=== PATIENT | male | born 1950 | race Caucasian/White ===

== ENCOUNTER 2021-09-27 18:03 | Inpatient (IN) | payer MEDICARE, OTHER ==
[~2021-09-27] VITALS: Ht 177.8 cm; Wt 74.1 kg
[~2021-09-27 18:03] MED LIST: LISINOPRIL10 MG PO; SINGULAIR PO
[2021-09-27 19:18] LABS: MEAN CELL VOLUME 90 fl (80.0-100.0); MEAN CORPUSCULAR HEMOGLOBIN 31 pg (27-31); MEAN CORPUSCULAR HGB CONC 34 g/dl (33.0-37.0); PLATELET COUNT 237 K/mm3 (130-400); RED BLOOD COUNT 4.55 M/mm3 (4.20-5.60); REDCELL DISTRIBUTION WIDTH-CV 12.3 % (11.5-14.5)
[2021-09-27 19:30] LABS: COLLECTION METHOD CLEAN CATCH
[2021-09-27 19:35] LABS: MUCOUS Present (NOT PRESENT); PH 7 (5-8); SQUAMOUS EPITHELIAL None Seen /hpf (0-10); URINE APPEARANCE Clear (CLEAR/HAZY); URINE BACTERIA None Seen /hpf (NONE SEEN); URINE BILIRUBIN Negative (NEGATIVE); URINE BLOOD Negative (NEGATIVE); URINE COLOR Yellow (YELLOW); URINE GLUCOSE Negative (NEGATIVE); URINE KETONE Negative (NEGATIVE); URINE LEUKOCYTE ESTERASE Negative (NEGATIVE); URINE NITRATE Negative (NEGATIVE); URINE PROTEIN(semi-quant) 1+ (NEGATIVE); URINE RBC None Seen /hpf (0-2); URINE UROBILINOGEN Negative (NEGATIVE)
[2021-09-27 19:39] LABS: ALBUMIN 3.9 gm/dL (3.4-4.8); BILIRUBIN,TOTAL 0.6 mg/dL (0.2-1.2); C-REACTIVE PROTEIN 0.69 mg/dL (0.00-0.50); CALCIUM 9.2 mg/dL (8.4-10.2); CREATININE, serum 0.89 mg/dL (0.72-1.25); POTASSIUM 3.9 mmol/L (3.5-4.5); TOTAL PROTEIN 6.8 gm/dL (6.2-8.1)
[2021-09-27 19:57] LABS: BAND 7 % (0-10); LYMPHOCYTE 2 % (20.0-51.0); NEUTROPHILS 90 % (42.0-75.2); PLATELET ESTIMATE NORMAL (NORMAL)
[2021-09-27 23:15] VITALS: BP 111/69; PULSE 83; TEMP 97.6
[2021-09-27] MEDS ORDERED: ZETIA 10MG TAB10 MG PO (23:53)
[2021-09-27] MEDS ORDERED: MICARDIS20 MG PO (23:55)
[2021-09-27] MEDS ORDERED: SYNTHROID0.088 MG/T PO (23:57)
[2021-09-28] MEDS ORDERED: MICARDIS40 MG PO (02:06)
[2021-09-28 03:11] VITALS: BP 108/84; PULSE 80; TEMP 98.3
[2021-09-28 03:36] LABS: TROPONIN-I 0.013 ng/mL (0.00-0.033); TSH w REFLEX 0.356 uIU/mL (0.350-4.940)
--- NOTE | 2021-09-28 06:11 | NUR ---
PT ARRIVED TO THE MEDICAL FLOOR AROUND [id number] TO [id number]. PT A&O X4; VSS; O2 RA; PT DENIES CHEST PAIN, SOB, N,V,D, GENERALIZED PAIN, OR DIZZINESS. ADMISSION ASSESSMENT AND MED REC COMPLETE. PT ORIENTED TO ROOM AND HOSPITAL POLICY. POC DISCUSSED WITH PT. PT VERBALIZED UNDERSTANDING. ALL QUESTIONS AND CONCERNS ADDRESSED. PT EXPRESSED NO ADDITIONAL NEEDS AT THIS TIME. CALL LIGHT WITHIN REACH.
[2021-09-28 06:24] LABS: BASO # 0.1 K/mm3 (0.0-0.2); BASO % 0.4 % (0.0-2.0); EOS # 0.1 K/mm3 (0.0-0.7); EOS % 0.6 % (0.0-4.0); GRAN # 14.4 K/mm3 (1.4-6.5); HEMOGLOBIN 12.1 g/dl (13.5-18.0); LYMPH # 1.1 K/mm3 (1.2-3.4); LYMPH % 6.5 % (20.0-51.0); MEAN CELL VOLUME 91 fl (80.0-100.0); MEAN CORPUSCULAR HEMOGLOBIN 31 pg (27-31); MEAN CORPUSCULAR HGB CONC 34 g/dl (33.0-37.0); MEAN PLATELET VOLUME 9.1 fl (7.4-10.4); MONO % 6.1 % (1.7-9.3); PLATELET COUNT 218 K/mm3 (130-400); RED BLOOD COUNT 3.94 M/mm3 (4.20-5.60); REDCELL DISTRIBUTION WIDTH-CV 12.4 % (11.5-14.5)
[2021-09-28 06:26] LABS: HEMATOCRIT 35.8 % (42.0-52.0)
[2021-09-28 06:47] LABS: BILIRUBIN,TOTAL 0.7 mg/dL (0.2-1.2); CALCIUM 8.5 mg/dL (8.4-10.2); CREATININE, serum 0.81 mg/dL (0.72-1.25); POTASSIUM 3.8 mmol/L (3.5-4.5); TOTAL PROTEIN 5.3 gm/dL (6.2-8.1)
[2021-09-28 06:57] LABS: INR 1.3 (0.8-3.0); PROTHROMBIN TIME 13.9 SECONDS (9.7-12.8)
[2021-09-28 07:41] VITALS: BP 106/60; PULSE 87; TEMP 97.4
--- NOTE | 2021-09-28 09:16 | NUR ---
Pt assessment complete. Pt is sitting up in the recliner upon entry, he is A/O x4. His breathing is even and unlabored on RA. Pt denies SOB. No pain at this time. Denies N/V. Hopeful to discharge home today. No needs at this time. Call light within reach.
--- NOTE | 2021-09-28 09:28 | NUR ---
Manager Skilled and SW student attended clinical rounds with the team then met with patient to discuss discharge planning. Patient lives in [place] with his , Lorena (ph#[phone]) and sees Dr. Guevara for primary care. Patient obtains medications from [facility] and does not use any DME. Patient is independent with ADLS and plans to return home upon discharge. Patient advised he has DPOA-HC that designates his , Lorena. Discharge plan: Home
[2021-09-28 11:17] VITALS: BP 126/64; PULSE 82; TEMP 97.8
--- NOTE | 2021-09-28 13:39 | NUR ---
Initial visit; Patient thanked Computer Assistant for looking in on him and offering to pray and/or keep him in her prayers. Flavio asked Computer Assistant to keep him in her prayers.
[2021-09-28 16:44] VITALS: BP 150/80; PULSE 100; TEMP 98.6
[2021-09-28 20:07] VITALS: BP 135/80; PULSE 79; TEMP 97.7
[2021-09-28 23:49] VITALS: BP 132/79; PULSE 81; TEMP 97.5
--- NOTE | 2021-09-29 01:55 | NUR ---
PATIENT DOING WELL TONIGHT. ALERT AND ORIENTED. DENIES PAIN OR PAIN CONTROL NEEDS. IV ZOSYN INFUSING INTERMITTENTLY THROUGH 20 G R AC IV. VSS. CURRENTLY ON ROOM AIR. ASSESSMENT COMPLETE. PATIENT RESTING COMFORTABLY IN BED.
[2021-09-29 03:46] VITALS: BP 147/84; PULSE 82; TEMP 98.1
[2021-09-29 07:01] LABS: BASO % 0.5 % (0.0-2.0); EOS # 0.3 K/mm3 (0.0-0.7); GRAN # 6.2 K/mm3 (1.4-6.5); GRAN % 77.5 % (42.2-75.2); HEMOGLOBIN 12.1 g/dl (13.5-18.0); LYMPH # 0.8 K/mm3 (1.2-3.4); LYMPH % 9.8 % (20.0-51.0); MEAN CELL VOLUME 92 fl (80.0-100.0); MEAN CORPUSCULAR HEMOGLOBIN 30 pg (27-31); MEAN CORPUSCULAR HGB CONC 33 g/dl (33.0-37.0); MEAN PLATELET VOLUME 9.6 fl (7.4-10.4); MONO # 0.6 K/mm3 (0.1-0.6); MONO % 7.8 % (1.7-9.3); PLATELET COUNT 243 K/mm3 (130-400); RED BLOOD COUNT 3.99 M/mm3 (4.20-5.60); REDCELL DISTRIBUTION WIDTH-CV 12.6 % (11.5-14.5)
[2021-09-29 07:06] LABS: HEMATOCRIT 36.7 % (42.0-52.0)
[2021-09-29 07:18] LABS: ALBUMIN 3.2 gm/dL (3.4-4.8); BILIRUBIN,TOTAL 0.4 mg/dL (0.2-1.2); CALCIUM 8.7 mg/dL (8.4-10.2); CREATININE, serum 0.79 mg/dL (0.72-1.25); POTASSIUM 3.7 mmol/L (3.5-4.5); TOTAL PROTEIN 5.6 gm/dL (6.2-8.1)
[2021-09-29 08:44] VITALS: BP 145/71; PULSE 84; TEMP 97.7
[2021-09-29] MEDS ORDERED: AMOXICILLIN 8751 TAB PO ×2 (10:59)
[2021-09-29 11:34] VITALS: BP 142/77; PULSE 75; TEMP 97.5
--- NOTE | 2021-09-29 12:59 | NUR ---
IV REMOVED, INTACT, PRESSURE APPLIED TO SITE. DISCHARGE PAPERS REVIEWED WITH PATIENT AND PATIENT'S . ALL QUESTIONS ANSWERED. PATIENT SIGNED DISCHARGE INSTRUCTIONS AND VERBALIZED UNDERSTANDING.
--- NOTE | 2021-09-29 15:21 | NUR ---
PT RETURNED, CALLED HIM AFTER D/C DUE TO RESULTS OF ECHO SHOWING VEGETATION. PT IS NOW BACK IN ROOM AND MD MADE AWARE.
[2021-09-29 16:00] VITALS: BP 193/93; PULSE 98; TEMP 98.3
[2021-09-29 19:52] VITALS: BP 156/86; PULSE 94; TEMP 98.8
--- NOTE | 2021-09-29 20:00 | NUR ---
Patient is sitting on the bedside, alert and oriented x 4 VSS. Some hypertension. Receiving a dose of Zosyn. Telemetry in place. Denies pain, nausea, or vomiting. No fevers registered in the last day. Assessment completed. Medications provided. No further needs at this time. Call [facility] within reach.
[2021-09-29 23:33] VITALS: BP 173/99; PULSE 82; TEMP 97.9
[2021-09-30] VITALS (11 sets, daily range): BP systolic 112–162; BP diastolic 65–92; PULSE 82–99; TEMP 97.4–99.4
--- NOTE | 2021-09-30 06:01 | NUR ---
Patient has had a calm night. Some hypertensive episodes, last one WNL. NPO from midnight. KRISTAL with no schedule time till now. He would like to know to tell his . Report will be given to day RN.
[2021-09-30 06:18] LABS: BASO % 0.4 % (0.0-2.0); EOS # 0.3 K/mm3 (0.0-0.7); EOS % 4.7 % (0.0-4.0); GRAN # 5.3 K/mm3 (1.4-6.5); GRAN % 72.8 % (42.2-75.2); HEMATOCRIT 40.6 % (42.0-52.0); HEMOGLOBIN 13.1 g/dl (13.5-18.0); LYMPH % 13.1 % (20.0-51.0); MEAN CELL VOLUME 94 fl (80.0-100.0); MEAN CORPUSCULAR HEMOGLOBIN 30 pg (27-31); MEAN CORPUSCULAR HGB CONC 32 g/dl (33.0-37.0); MEAN PLATELET VOLUME 9.4 fl (7.4-10.4); MONO # 0.6 K/mm3 (0.1-0.6); MONO % 8.7 % (1.7-9.3); PLATELET COUNT 248 K/mm3 (130-400); RED BLOOD COUNT 4.32 M/mm3 (4.20-5.60); REDCELL DISTRIBUTION WIDTH-CV 12.6 % (11.5-14.5)
[2021-09-30 06:40] LABS: ALBUMIN 3.4 gm/dL (3.4-4.8); BILIRUBIN,TOTAL 0.7 mg/dL (0.2-1.2); CALCIUM 9.2 mg/dL (8.4-10.2); CREATININE, serum 0.86 mg/dL (0.72-1.25); TOTAL PROTEIN 6.1 gm/dL (6.2-8.1)
--- NOTE | 2021-09-30 12:07 | NUR ---
PATIENT RETURNED FROM KRISTAL PROCUEDURE. VERBAL REPORT GIVEN FROM RN. ALL QUESTIONS ANSWERED AT THIS TIME.
[2021-09-30] MEDS ORDERED: DOXYCYCLINE 10100 MG PO (14:25)
--- NOTE | 2021-09-30 16:20 | NUR ---
IV D/C, INTACT. D/C PAPERS REVIEWED WITH PATIENT AND . NO QUESTIONS AT THIS TIME. PATIENT TAKEN OUT IN W/C.
== END 2021-09-30 16:20 | disposition home or self-care (01) | DRG 871 ==
LOC: COL.ER 18:03 → MEDICAL 20:37
PROVIDERS: Internal Medicine Infectious Disease; Nurse Practitioner; Nurse Practitioner Family; ADMIT Internal Medicine
DX: A41.9 Sepsis, unspecified organism (principal); J18.9 Pneumonia, unspecified organism; E87.2 Acidosis; I10 Essential (primary) hypertension; E78.5 Hyperlipidemia, unspecified; E03.9 Hypothyroidism, unspecified; M71.38 Other bursal cyst, other site; Z20.822 Contact with and (suspected) exposure to COVID-19; Z23 Encounter for immunization; Z85.89 Personal history of malignant neoplasm of other organs and systems
CPT/HCPCS: 99223-AI; 99233-AI; 99239; J0360; J2543; J2704; J7120; Q9967

== ENCOUNTER → 2021-11-24 | Outpatient (CLI) | payer MEDICARE, OTHER ==
[~2021-11-24] MED LIST changes: +AMOXICILLIN 8751 TAB PO; +DOXYCYCLINE 10100 MG PO; +MICARDIS20 MG PO; +MICARDIS40 MG PO; +SYNTHROID0.088 MG/T PO; +ZETIA 10MG TAB10 MG PO
== END ==
LOC: COL.RAD 14:25
DX: J18.9 Pneumonia, unspecified organism (principal); Z85.810 Personal history of malignant neoplasm of tongue

== ENCOUNTER 2021-12-09 16:00 | Outpatient (RCR) | payer MEDICARE, OTHER | END 2021-12-26 | disposition home or self-care (01) | LOC: WSST | DX: R13.12 Dysphagia, oropharyngeal phase (principal); J18.9 Pneumonia, unspecified organism; Z85.810 Personal history of malignant neoplasm of tongue ==

== ENCOUNTER → 2022-02-11 | Outpatient (CLI) | payer MEDICARE, OTHER | LOC: COL.VAS 07:06 | DX: I65.23 Occlusion and stenosis of bilateral carotid arteries (principal); E78.5 Hyperlipidemia, unspecified ==

== ENCOUNTER 2022-03-03 18:20 | Emergency (ER) | payer MEDICARE, OTHER ==
[~2022-03-03] VITALS: Ht 177.8 cm; Wt 68.2 kg
[2022-03-03 19:41] LABS: HEMATOCRIT 42.8 % (42.0-52.0); HEMOGLOBIN 14.8 g/dl (13.5-18.0); MEAN CELL VOLUME 89 fl (80.0-100.0); MEAN CORPUSCULAR HEMOGLOBIN 31 pg (27-31); MEAN CORPUSCULAR HGB CONC 35 g/dl (33.0-37.0); PLATELET COUNT 220 K/mm3 (130-400); RED BLOOD COUNT 4.79 M/mm3 (4.20-5.60); REDCELL DISTRIBUTION WIDTH-CV 12.7 % (11.5-14.5)
[2022-03-03 20:03] LABS: ALBUMIN 3.8 gm/dL (3.4-4.8); BAND 23 % (0-10); BILIRUBIN,TOTAL 0.9 mg/dL (0.2-1.2); C-REACTIVE PROTEIN 2.1 mg/dL (0.00-0.50); CALCIUM 9.3 mg/dL (8.4-10.2); CREATININE, serum 0.89 mg/dL (0.72-1.25); NEUTROPHILS 71 % (42.0-75.2); PLATELET ESTIMATE NORMAL (NORMAL); POTASSIUM 3.8 mmol/L (3.5-4.5); TOTAL PROTEIN 6.7 gm/dL (6.2-8.1)
[2022-03-03 20:49] VITALS: TEMP 97.7
[2022-03-03 21:09] VITALS: BP 109/62; PULSE 90
[2022-03-03] MEDS ORDERED: DOXYCYCLINE 10100 MG PO (21:10)
== END 2022-03-03 21:36 | disposition home or self-care (01) ==
LOC: COL.ER 18:20
PROVIDERS: Nurse Practitioner
DX: J18.9 Pneumonia, unspecified organism (principal); Z20.822 Contact with and (suspected) exposure to COVID-19
CPT/HCPCS: J0696; J7030

== ENCOUNTER 2022-04-12 21:44 | Emergency (ER) | payer MEDICARE, OTHER ==
[~2022-04-12] VITALS: Ht 177.8 cm; Wt 70.5 kg
[2022-04-12 23:49] LABS: BASO % 0.1 % (0.0-2.0); EOS # 0.1 K/mm3 (0.0-0.7); EOS % 0.8 % (0.0-4.0); GRAN # 5.9 K/mm3 (1.4-6.5); GRAN % 80.7 % (42.2-75.2); HEMATOCRIT 42.3 % (42.0-52.0); HEMOGLOBIN 14.6 g/dl (13.5-18.0); LYMPH # 0.9 K/mm3 (1.2-3.4); LYMPH % 11.7 % (20.0-51.0); MEAN CELL VOLUME 89 fl (80.0-100.0); MEAN CORPUSCULAR HEMOGLOBIN 31 pg (27-31); MEAN CORPUSCULAR HGB CONC 35 g/dl (33.0-37.0); MEAN PLATELET VOLUME 9.2 fl (7.4-10.4); MONO # 0.5 K/mm3 (0.1-0.6); MONO % 6.4 % (1.7-9.3); PLATELET COUNT 161 K/mm3 (130-400); RED BLOOD COUNT 4.73 M/mm3 (4.20-5.60); REDCELL DISTRIBUTION WIDTH-CV 12.9 % (11.5-14.5)
[2022-04-13 00:05] LABS: ANION GAP 12 mmol/L (7-16); BLOOD UREA NITROGEN 14 mg/dL (8-26); CALCIUM 9.1 mg/dL (8.4-10.2); CARBON DIOXIDE 22 mmol/L (23-31); CHLORIDE 102 mmol/L (98-107); CREATININE, serum 0.97 mg/dL (0.72-1.25); GLUCOSE 103 mg/dL (70-99); SODIUM 136 mmol/L (136-145)
[2022-04-13 00:13] LABS: TROPONIN-I < 0.010 ng/mL (0.00-0.033)
[2022-04-13 01:00] VITALS: BP 153/91; PULSE 75; TEMP 98.6
== END 2022-04-13 01:00 | disposition home or self-care (01) ==
LOC: COL.ER 21:44
PROVIDERS: Emergency Medicine
DX: U07.1 COVID-19 (principal); Z73.0 Burn-out
CPT/HCPCS: J7120

== ENCOUNTER → 2022-06-17 | Outpatient (CLI) | payer MEDICARE, OTHER ==
[2022-06-17] VITALS (15 sets, daily range): BP systolic 100–199; BP diastolic 67–112; PULSE 82–106; TEMP 97.8
[~2022-06-17] VITALS: Ht 177.8 cm; Wt 68.2 kg
[~2022-06-17] MED LIST changes: +ZITHROMAX 250M250 MG PO
--- NOTE | 2022-06-17 09:10 | NUR ---
Pt to ct per ambulation. Pt in prone position on ct table. Monitors applied
--- NOTE | 2022-06-17 09:55 | NUR ---
Specimens obtained and placed in formalin by Dr Kelley. Specimen labeled.
== END ==
LOC: COL.RAD 07:54
DX: M89.9 Disorder of bone, unspecified (principal)
CPT/HCPCS: J2250; J3010

== ENCOUNTER 2022-11-25 17:59 | Inpatient (IN) | payer MEDICARE, OTHER ==
[~2022-11-25] VITALS: Ht 177.8 cm; Wt 65.0 kg
[2022-11-25 18:16] LABS: BASO # 0.1 K/mm3 (0.0-0.2); BASO % 0.4 % (0.0-2.0); EOS # 0.1 K/mm3 (0.0-0.7); EOS % 1.2 % (0.0-4.0); GRAN # 10.3 K/mm3 (1.4-6.5); GRAN % 84.8 % (42.2-75.2); HEMATOCRIT 44.8 % (42.0-52.0); HEMOGLOBIN 15.4 g/dl (13.5-18.0); LYMPH # 0.9 K/mm3 (1.2-3.4); LYMPH % 7.1 % (20.0-51.0); MEAN CELL VOLUME 91 fl (80.0-100.0); MEAN CORPUSCULAR HEMOGLOBIN 31 pg (27-31); MEAN CORPUSCULAR HGB CONC 34 g/dl (33.0-37.0); MEAN PLATELET VOLUME 8.5 fl (7.4-10.4); MONO # 0.7 K/mm3 (0.1-0.6); MONO % 6.1 % (1.7-9.3); PLATELET COUNT 366 K/mm3 (130-400); RED BLOOD COUNT 4.95 M/mm3 (4.20-5.60); REDCELL DISTRIBUTION WIDTH-CV 12.1 % (11.5-14.5)
[2022-11-25 18:32] LABS: ALANINE AMINOTRANSFERASE 13 U/L (0-55); ALKALINE PHOSPHATASE 91 U/L (40-150); ANION GAP 14 mmol/L (7-16); AST,SGOT 20 U/L (5-34); BILIRUBIN,TOTAL 0.5 mg/dL (0.2-1.2); BLOOD UREA NITROGEN 13 mg/dL (8-26); CALCIUM 9.8 mg/dL (8.4-10.2); CARBON DIOXIDE 23 mmol/L (23-31); CHLORIDE 101 mmol/L (98-107); CREATININE, serum 0.87 mg/dL (0.72-1.25); GLUCOSE 104 mg/dL (70-99); POTASSIUM 4.6 mmol/L (3.5-4.5); SODIUM 138 mmol/L (136-145)
[2022-11-25 18:38] LABS: TROPONIN-I < 0.010 ng/mL (0.00-0.033)
[2022-11-25 19:01] LABS: ARTERIAL BLD GAS O2 SATURATION 95.6 % (92-100); ARTERIAL BLOOD GAS BASE EXCESS 0.6 (-2-2); ARTERIAL BLOOD GAS HCO3 24.3 meq/L (22-26); ARTERIAL BLOOD GAS PCO2 36.2 mmHg (35-45); ARTERIAL BLOOD GAS PO2 76.4 mmHg (80-100); ARTERIAL BLOOD GAS pH 7.44 (7.35-7.45)
[2022-11-25] MEDS ORDERED: CLEOCIN HCL300 MG PO (22:04)
[2022-11-25] MEDS ORDERED: PRIL40 PO (22:05)
--- NOTE | 2022-11-25 22:34 | NUR ---
Patient arrived to medical unit from ER at approximately 2200. Alert and oriented x 4, and able to make needs known. Denies having pain and discomfort at this time. Peripheral INT to left AC and right AC. Has IV fluids and ABX running per orders. Patient is NPO. Given water to swish, as well as mouth swabs. Voice is very hoarse. LS coarse crackles with wheezing. HRR. Telemetry in place. BSAx4. Voices no questions, needs, or concerns at this time. In bed with call light within reach.
[2022-11-25 23:23] VITALS: BP 115/63; PULSE 98; TEMP 98.4
[2022-11-26] VITALS (10 sets, daily range): BP systolic 138–154; BP diastolic 65–88; PULSE 98–111; TEMP 97.8–98.9
--- NOTE | 2022-11-26 05:40 | NUR ---
Cotinues on IV fluids and ABX per orders. Remains NPO. Voices no questions, needs, or concerns at this time. In bed with call light within reach.
--- NOTE | 2022-11-26 08:00 | NUR ---
Patient sitting up in bed, A&Ox4. VSS. IV Cdi, fluids infusing. Denies pain and discomfort. Independent in the room. Call light within reach
--- NOTE | 2022-11-26 09:23 | NUR ---
Initial visit; Flavio is a very pleasant person, thanking Extractor And Wringer Operator for looking in on him. He states he is better and requests that Extractor And Wringer Operator keep him in her prayers.
--- NOTE | 2022-11-26 14:25 | NUR ---
Patient back to room 308 from the OR. A&Ox3, drowsy. at the bedside. VSS. IV CDI, fluids by gravity. Denies pain and discomfort. Peg tube site CDI. Post op VS monitored. Call light within reach. Bed alarm on
--- NOTE | 2022-11-26 14:51 | NUR ---
IFEANYI met with the patient and his , Lorena (ph#[phone]), to discuss discharge plan. The patient had just returned from having a peg tube placed. The patient lives in [place] with his . Lorena reports that the patient is independent with ADLs and does not have any DME. The patient's PCP is Dr. Zuleika Guevara and he obtains his medications from [facility] [place]. The patient does not have a DPOA-HC in EMR, but Lorena states that the patient does have one completed and that it designates her. Lorena reports that the plan is for the patient to return home with her upon discharge. IFEANYI discussed home health services for education on the peg tube feedings at home and that [facility] offers the feedings. Lorena is agreeable to getting the feedings from [facility] and getting home health started. IFEANYI provided Lorena with [email or web address]'s list of home health agencies that serve [place]. Lorena chose [facility]. She had no other concerns for IFEANYI at this time. IFEANYI contacted and faxed a referral to Kris at [facility]. Kris reports that they are able to accept the patient for services. *Discharge plan: home with and [facility] home health. The peg tube feedings will need to be set up through [facility]*
--- NOTE | 2022-11-26 16:47 | NUR ---
Patient has complaints of a headache. Warm blanket provided to help with the headache. VSS. IV CDI. at the bedside. Call light within reach. Bed alarm on
--- NOTE | 2022-11-27 02:00 | NUR ---
NURSING SHIFT ASSESSMENT COMPLETED. THE PATIENT IS ALERT AND ORIENTED. THE PATIENT IS REPORTING SOME ABD PAIN FROM THE PEG INSERTION SITE. THE PATIENT DENIED THE NEED FOR PAIN MEDICATION AT THIS TIME, BUT DID STATE THAT HE WOULD LIKE TO HAVE IT AROUND 2330 SO HE WOULD HOPEFULLY SLEEP BETTER. THE PATIENT WAS REASSURED THAT HE COULD HAVE IT THEN BUT COULD ALSO GET SOMETHING NOW, BUT HE DECLINED. NO OTHER NEEDS AT THIS TIME. CALL LIGHT AND PERSONAL BELONGINGS WITHIN REACH. BED IN LOW POSITION. BED ALARM ON. WILL MONITOR.
[2022-11-27 03:37] VITALS: BP 160/88; PULSE 95; TEMP 97.5
[2022-11-27 07:22] VITALS: BP 146/79; PULSE 95; TEMP 98
--- NOTE | 2022-11-27 08:00 | NUR ---
Patient sitting up in bed, A&Ox4. VSS. IV CDI, fluids infusing. Denies pain and discomfort. Peg tube intact. Call light within reach
[2022-11-27 10:11] LABS: ALBUMIN 3.7 gm/dL (3.4-4.8); BILIRUBIN,TOTAL 0.5 mg/dL (0.2-1.2); CALCIUM 9.6 mg/dL (8.4-10.2); CREATININE, serum 0.81 mg/dL (0.72-1.25); MAGNESIUM 2.4 mg/dL (1.6-2.6); POTASSIUM 4.4 mmol/L (3.5-4.5); TOTAL PROTEIN 7.5 gm/dL (6.2-8.1)
[2022-11-27 11:28] VITALS: BP 149/86; PULSE 93; TEMP 98.4
[2022-11-27 15:45] VITALS: BP 108/54; PULSE 107; TEMP 97.8
--- NOTE | 2022-11-27 18:13 | NUR ---
Nurse demonstrating how to use peg tube and patient is able to demonstrate how to do a tube feed/medication admiinistration with the peg tube. Nurse will continue to demonstrate how to use the peg tube with patient demonstrating as well. No further needs expressed. Call light within reach
[2022-11-27 19:08] VITALS: BP 105/70; PULSE 94; TEMP 98
[2022-11-27 23:54] VITALS: BP 148/89; PULSE 91; TEMP 99.1
--- NOTE | 2022-11-28 03:49 | NUR ---
NURSING SHIFT ASSESSMENT COMPLETED. THE PATIENT DENIED PAIN. THE PATIENT WAS SITTING IN THE RECLINER WATCHING THE BASKETBALL GAME ON TV DURING THIS INTERACTION. THE PLAN OF CARE WAS DISCUSSED AND ALL QUESTIONS AND CONCERNS WERE ADDRESSED. TUBE FEEDING REGIMEN TAUGHT AND DISCUSSED DURING THIS ENCOUNTER. NO OTHER NEEDS AT THIS TIME. WILL MONITOR. THE PATIENT IS UP INDEPENDENTLY.
[2022-11-28 05:57] VITALS: BP 149/74; PULSE 86; TEMP 97.6
[2022-11-28 07:06] LABS: BASO % 0.1 % (0.0-2.0); EOS % 0.1 % (0.0-4.0); GRAN # 9.7 K/mm3 (1.4-6.5); GRAN % 82.8 % (42.2-75.2); HEMATOCRIT 42.7 % (42.0-52.0); HEMOGLOBIN 14.4 g/dl (13.5-18.0); LYMPH # 1.3 K/mm3 (1.2-3.4); LYMPH % 11.1 % (20.0-51.0); MEAN CELL VOLUME 91 fl (80.0-100.0); MEAN CORPUSCULAR HEMOGLOBIN 31 pg (27-31); MEAN CORPUSCULAR HGB CONC 34 g/dl (33.0-37.0); MEAN PLATELET VOLUME 8.6 fl (7.4-10.4); MONO # 0.6 K/mm3 (0.1-0.6); MONO % 5.5 % (1.7-9.3); PLATELET COUNT 348 K/mm3 (130-400); RED BLOOD COUNT 4.68 M/mm3 (4.20-5.60); REDCELL DISTRIBUTION WIDTH-CV 12.9 % (11.5-14.5)
[2022-11-28 07:09] LABS: CALCIUM 9.1 mg/dL (8.4-10.2); CREATININE, serum 0.85 mg/dL (0.72-1.25); MAGNESIUM 2.4 mg/dL (1.6-2.6); PHOSPHOROUS 2.5 mg/dL (2.3-4.7); POTASSIUM 3.9 mmol/L (3.5-4.5)
[2022-11-28 07:49] VITALS: BP 142/69; PULSE 90; TEMP 97.9
--- NOTE | 2022-11-28 08:00 | NUR ---
Patient walking around the hallway independently and tolerating well. Patient did 0600 am tube feed with prior nurse under supervision. A&Ox4. VSS. IV CDI. Peg tube intact. Denies pain and discomfort. Call light within reach
[2022-11-28] MEDS ORDERED: AMOXICILLIN 8751 TAB PO (08:27)
--- NOTE | 2022-11-28 10:45 | NUR ---
SW received call from farm operator requesting fax to [facility]. SW faxed feeding orders and explained pt has 4 days of supplies and will need to arrange for spouse to draft roller picker supplies and future delicery. Pt was given IM, confirmed understanding and signed; placed in chart. SW provided [email or web address] for homehealth and realized Kassi had already taken care of this part. No other needs. Lorena present in room.
--- NOTE | 2022-11-28 10:55 | NUR ---
Discharge paperwork reviewed with the patient. Patient and verbalized an understanding. IV removed, tip intact. Gauze and coban applied. Supplies given to patient for peg tube. Patient ambulated independently to awaiting vehicle. No futher needs expressed.
--- NOTE | 2022-11-28 11:23 | NUR ---
Speech Assistant rounds: Speech Assistant visit attempted. Speech Assistant arrived at room just as Patient was being discharged. RN and a visitor were walking with him. Speech Assistant overheard that they would leave the hospital through the ER. No Speech Assistant visit completed.
--- NOTE | 2022-11-29 09:57 | NUR ---
fire crew worker notified Uche with [facility] that patient discharged on 11/28/22 and faxed home health orders and clinical information.
== END 2022-11-28 10:55 | disposition home or self-care (01) | DRG 871 ==
LOC: COL.ER 17:59 → MEDICAL 20:38
PROVIDERS: Nurse Practitioner; Student in an Organized Health Care Education/Training Program; Surgery; ADMIT Internal Medicine
PROC: 3E0G76Z Introduction of Nutritional Substance into Upper GI, Via Natural or Artificial Opening (ICD-10-PCS; 2022-11-26)
PROC: 0DH63UZ Insertion of Feeding Device into Stomach, Percutaneous Approach (ICD-10-PCS; principal; 2022-11-26 14:15)
DX: A41.9 Sepsis, unspecified organism (principal); J69.0 Pneumonitis due to inhalation of food and vomit; J96.01 Acute respiratory failure with hypoxia; E44.0 Moderate protein-calorie malnutrition; R04.2 Hemoptysis; Z20.822 Contact with and (suspected) exposure to COVID-19; E03.9 Hypothyroidism, unspecified; I10 Essential (primary) hypertension; E78.5 Hyperlipidemia, unspecified; E87.5 Hyperkalemia; J47.9 Bronchiectasis, uncomplicated; Z90.49 Acquired absence of other specified parts of digestive tract; Z92.3 Personal history of irradiation; Z85.21 Personal history of malignant neoplasm of larynx; Z79.890 Hormone replacement therapy; Z23 Encounter for immunization; Z68.21 Body mass index [BMI] 21.0-21.9, adult
CPT/HCPCS: OP; C9113; J0360; J1100; J1650; J2270; J2543; J2704; J2920; J2930; J7030; Q9967